=== PATIENT | female | born 2000 | race Caucasian/White ===

== ENCOUNTER 2024-01-20 14:52 | Outpatient (AMB) | payer OTHER, SELFPAY ==
--- NOTE | 2024-01-20 15:29 | MHC.OFFVIS ---
Vital Signs 01/20/24 15:32 Height 4 ft 11 in Weight 167 lb 12.348 oz BMI 33.9 BP 104/60 Blood Pressure Location Lt brachial Position Sitting Pulse 78 Pulse Source Pulse Oximeter Intake Visit Reasons: Enlarged Thyroid-confirmed Intake Note: New patient present today for enlarged thyroid office visit. [employer]r Required: No Accompanied by: Self / Same As Patient Allergies No Known Allergies Allergy (Verified 01/20/24 15:36) Medication List - Last Reconciled 01/20/24 by Driss Chang MD No Known Home Meds HPI Comments Details: 23 YO F with PMHx who is seen in consultation for enlarged thyroid at the request of PCP. Was initially diagnosed with enlarged thyroid in childhood with thyroid US revealing enlarged lobe . No dysphagia or hoarseness of voice. C/O difficulty breathing while lying flat gotten worse . Denies any tenderness in the neck. Denies any palpitations, tremors, weight loss, frequent bowel movements. Denies any ocular complaints, blurred or double vision. admit to hair loss, dry skin, no heat or cold intolerance,no weight gain, confusion. Denies any history of head or neck irradiation. Maternal grand mother family history of thyroid cancer. Had biopsy of nodules in the past. Thyroid US: Accessory lobe of the thyroid 43 x 24 x 7 mm arising from the right lobe of the thyroid [facility]: [facility] Medical History (Updated 01/20/24 @ 15:41 by Driss Chang MD) Enlarged thyroid Surgical History (Updated 01/20/24 @ 15:39 by MARA Torres) History of cholecystectomy Family History (Updated 01/20/24 @ 15:40 by MARA Torres) Mother Hypertension Thyroid disease Father Diabetes Social History Alcohol intake: never Patient Tobacco Use Status: Never used Tobacco Physical Exam Vital Signs: Last Vital Signs Pulse 78 01/20/24 15:32 BP 104/60 01/20/24 15:32 BMI result Body Mass Index 33.9 HEENT reveals absence of lid lag , stare or proptosis or eyebrow loss. Thyroid gland appears diffusely enlarged and weighs about 60 g. The bottom border of the right thyroid can not be palpated. No nodules or tenderness palpated. There is no cervical adenopathy palpated. Lungs CTA. Heart S1, S2 Reg R/R -M/R/G. Abdominal exam benign. Skin exam reveals absence of dryness or thyroid dermopathy or vitiligo. Nail exam reveals absence of thyroid acropachy or oncholysis. Neurologic exam reveals 2+ reflexes . Muscle Strength is 5/5 proximally. There are no tremors in upper extremities. There is a mild Francis sign present Assessment & Plan Assessment & Plan (1) Enlarged thyroid: Code(s): E04.9 - Nontoxic goiter, unspecified Category: Medical Plan: This is a 23-year-old female found to have a accessory lobe of the thyroid. She appears to be clinically and biochemically euthyroid After careful discussion it was decided to send the patient for surgical evaluation with Dr. Bales. A referral was made Orders: Referrals General Surgery Referral E04.9 - Nontoxic goiter, unspecified Coding Level of Care Code New Pt Level 4 (27075) Diagnoses Enlarged thyroid E04.9
[2024-01-20 15:32] VITALS: BP 104/60; PULSE 78; BMI 33.9
== END 2024-01-20 15:58 | disposition home or self-care (01) ==
PROVIDERS: PCP Nurse Practitioner; Visit Provider Internal Medicine Endocrinology, Diabetes & Metabolism
DX: E04.9 Nontoxic goiter, unspecified (principal)
CPT/HCPCS: 99204

== ENCOUNTER → 2024-01-20 14:52 | Outpatient (BNVA) | payer OTHER, SELFPAY | PROVIDERS: PCP Nurse Practitioner; Visit Provider Internal Medicine Endocrinology, Diabetes & Metabolism | DX: E04.9 Nontoxic goiter, unspecified (principal) | CPT/HCPCS: 99202 ==